=== PATIENT | male | born 1995 | race Caucasian/White ===

== ENCOUNTER 2025-07-15 14:14 | Emergency (ER) | payer OTHER, SELFPAY ==
[2025-07-15 14:16] VITALS: BP 142/85
[2025-07-15 14:31] LABS: Hematocrit 40.7 % (39.0-52.0); Hemoglobin 13.5 g/dL (13.0-18.0); Mean Corp Hgb Conc. 33.2 g/dL (33.0-37.0); Mean Corpuscular Volume 87.5 fL (80.0-94.0); Nucleated Red Blood Cells % 0 % (-); Platelet Count 288 10^3/uL (130-400); Red Cell Dist. Width 11.7 % (11.5-14.5)
[2025-07-15 14:48] LABS: ALT (SGPT) 12 U/L (0-50); AST (SGOT) 17 U/L (17-59); Albumin 5.0 g/dl (3.5-5.0); Alkaline Phosphatase 68 U/L (38-126); Blood Urea Nitrogen 8 mg/dl (9-20); Calcium 9.4 mg/dl (8.4-10.2); Carbon Dioxide 29 mmol/L (22-30); Chloride 106 mmol/L (98-107); Glucose 108 mg/dl (70-99); Lipase 159 U/L (23-300); Potassium 4.0 mmol/L (3.5-5.1); Sodium 143 mmol/L (135-145); Total Protein 7.5 g/dl (6.3-8.2); eGFR > 60.00
== END 2025-07-15 17:07 | disposition left against medical advice (07) ==
LOC: EMR 14:14
PROVIDERS: Emergency Medicine; EMERGENCY PHYSICIAN Student in an Organized Health Care Education/Training Program
DX: R10.9 Unspecified abdominal pain (principal); Z53.21 Procedure and treatment not carried out due to patient leaving prior to being seen by health care provider
CPT/HCPCS: 80053; 83690; 85025